=== PATIENT | male | born 1965 | race Caucasian/White ===

== ENCOUNTER 2024-04-09 14:20 | Emergency (ER) | payer BC ==
[2024-04-09] MEDS ORDERED: ONDANSETRON 4 MG/2 ML VIAL ONE (16:46)
[2024-04-09] MEDS ORDERED: MECLIZINE HCL 12.5 MG TAB ONE (16:46)
[2024-04-09] MEDS ORDERED: MORPHINE 4 MG/ML SYR ONE (16:46)
[2024-04-09] MEDS ORDERED: NA CHLORIDE 0.9% 1,000 ML ONE (16:46)
[2024-04-09 17:12] LABS: Absolute Basophils 0.1 K/uL (0-0.5); Absolute Lymphocytes (CBC) 0.8 K/uL (0.7-4.9); Absolute Monocytes 0.6 K/uL (0.1-1.3); Absolute Neutrophil 9.7 K/uL (1.8-8.0); Basophils % 0.5 % (0-1.3); Hematocrit 46.8 % (39.6-49.0); Hemoglobin 15.5 g/dL (13.6-17.9); Lymphocytes % 6.9 % (15.3-44.8); MCH 28.8 pg (27.0-35.0); MCHC 33.2 g/dL (32.0-36.0); MCV 86.8 fL (80-100); MPV 7.7 fL (7.6-11.3); Monocytes % 5.5 % (3.3-12.3); Neutrophils % 87.1 % (41.7-73.7); Platelets 226 thou/uL (152-406); RBC Red Blood Cell Count 5.39 M/uL (4.33-5.43); Red Cell Distribution Width 13.7 % (12.1-15.2)
[2024-04-09 18:15] LABS: Albumin 3.7 g/dL (3.4-5.0); Albumin/Globulin Ratio 1.1 (1.1-1.8); Anion Gap 7.6 mEq/L (5.0-15.0); Bilirubin Total 0.6 mg/dL (0.2-1.0); Globulin 3.3 g/dL (2.3-3.5); Potassium 3.6 mEq/L (3.5-5.1); Troponin High Sensitivity 5.9 pg/mL (<58.9)
--- NOTE | 2024-04-09 19:15 | RAD REPORT ---
EXAM DESCRIPTION: CT - Head Brain Wo Cont - 04/09/2024 7:08 pm CLINICAL HISTORY: Dizziness COMPARISON: none TECHNIQUE: Computed axial tomography of the head was obtained. IV contrast was not requested. All CT scans are performed using dose optimization technique as appropriate and may include automated exposure control or mA/KV adjustment according to patient size. FINDINGS: An intracranial bleed is not seen The ventricles are normal in caliber No significant hypodense areas within the brain visualized No extra-axial fluid collection is noted. Fluid within the sinuses/ mastoids is not seen IMPRESSION: No acute intracranial abnormality is seen If patient's symptoms persist MRI of the brain would be recommended
--- NOTE | 2024-04-09 19:22 | EDPHYS ---
Physician Documentation [facility] Name: Luciano Ann Age: 58 yrs Sex: Male : 1965 Arrival Date: 04/09/2024 Time: 14:20 Bed 19 Private MD: ED Physician Salazar Adler HPI: 04/09 16:28 This 58 yrs old Male presents to ER via Wheelchair with complaints of Dizziness, sp3 Abdominal Pain, Nausea/Vomiting. 16:28 58-year-old male with history of hypertension, hyperlipidemia presents with intense sp3 episodes of vertigo and dizziness coupled with subsequent vomiting and abdominal cramping from the vomiting. Patient states he has "nothing else to bring up" and when he did earlier it was bile and "blood-tinged". He denies any abdominal pain prior to the vertigo episodes. He denies fever, back pain, chest pain, shortness of breath, lower abdominal pain, syncope, near syncope, rash, head injury, known sick contacts, travel history, or any other signs or symptoms on ROS at this time.. Historical: - Allergies: 14:42 No Known Allergies; iw - PMHx: 14:42 Hypertensive disorder; Hypercholesterolemia; iw - PSHx: 14:42 None; iw - Immunization history:: Adult Immunizations not up to date. - Infectious Disease History:: Denies. - Social history:: Smoking status: Patient denies any tobacco usage or history of. ROS: 16:31 Constitutional: Negative for fever, chills, and weight loss, Eyes: Negative for injury, sp3 pain, redness, and discharge, Neck: Negative for injury, pain, and swelling, Cardiovascular: Negative for chest pain, palpitations, and edema, Respiratory: Negative for shortness of breath, cough, wheezing, and pleuritic chest pain, Back: Negative for injury and pain, MS/Extremity: Negative for injury and deformity, Skin: Negative for injury, rash, and discoloration, Psych: Negative for depression, anxiety, suicide ideation, homicidal ideation, and hallucinations, Allergy/Immunology: Negative for hives, rash, and allergies, Endocrine: Negative for neck swelling, polydipsia, polyuria, polyphagia, and marked weight changes, Hematologic/Lymphatic: Negative for swollen nodes, abnormal bleeding, and unusual bruising, 16:31 All other systems are negative, Exam: 16:31 Constitutional: This is a well developed, well nourished patient who is awake, alert, sp3 and in no acute distress. Head/Face: Normocephalic, atraumatic. Eyes: Pupils equal round and reactive to light, extra-ocular motions intact. Lids and lashes normal. Conjunctiva and sclera are non-icteric and not injected. Cornea within normal limits. Periorbital areas with no swelling, redness, or edema. Neck: Trachea midline, no thyromegaly or masses palpated, and no cervical lymphadenopathy. Supple, full range of motion without nuchal rigidity, or vertebral point tenderness. No Meningismus. Chest/axilla: Normal chest wall appearance and motion. Nontender with no deformity. No lesions are appreciated. Cardiovascular: Regular rate and rhythm with a normal S1 and S2. No gallops, murmurs, or rubs. Normal PMI, no JVD. No pulse deficits. Respiratory: Lungs have equal breath sounds bilaterally, clear to auscultation and percussion. No rales, rhonchi or wheezes noted. No increased work of breathing, no retractions or nasal flaring. Back: No spinal tenderness. No costovertebral tenderness. Full range of motion. Skin: Warm, dry with normal turgor. Normal color with no rashes, no lesions, and no evidence of cellulitis. Neuro: Awake and alert, GCS 15, oriented to person, place, time, and situation. Cranial nerves II-XII grossly intact. Motor strength 5/5 in all extremities. Sensory grossly intact. Cerebellar exam normal. Normal gait. Psych: Awake, alert, with orientation to person, place and time. Behavior, mood, and affect are within normal limits. 16:31 Eyes: Mild horizontal nystagmus noted with no vertical component.. 16:31 Abdomen/GI: Mild epigastric pain to palpation without peritoneal signs, rebound or guarding. No active emesis here in the ED., 17:00 ECG was reviewed by the Attending Physician. EKG demonstrates normal sinus rhythm at 77 sp3 bpm with normal intervals, normal QRS, normal axis, nonspecific diffuse ST's ST changes without evidence of acute ischemia. Vital Signs: 14:40 BP 163 / 89; Pulse 78; Resp 18; Temp 97.6; Pulse Ox 96% on R/A; Weight 95.25 kg; Height iw 5 ft. 11 in. ; 18:16 BP 167 / 92; Pulse 77; Resp 13; Pulse Ox 94% ; bp 19:40 BP 152 / 97; Pulse 77; Resp 19 S; Pulse Ox 97% on R/A; ha1 14:40 Body Mass Index 29.29 (95.25 kg, 180.34 cm) iw MDM: 14:35 Patient medically screened. sp3 16:33 Data reviewed: vital signs, nurses notes, lab test result(s), EKG, radiologic studies. sp3 ED course: 58-year-old male who I believe had a vertigo episode probably peripheral in nature with subsequent abdominal pain and vomiting. Clinically low suspicion for central vertigo. However CT scan of the head is pending. CT scan of the abdomen pelvis was also obtained and is pending. Laboratory values are within normal limits. Morphine and ondansetron for symptomatic pain control along with meclizine. Disposition pending workup and patient course with probable discharge home.. 19:21 ED course: Full workup negative including CT scan of the head and laboratory values. sp3 Patient feels better with the meclizine. We will discharge him home on meclizine p.o. and ondansetron ODT with follow-up to PCP.. 04/09 15:13 Order name: CBC with Diff; Complete Time: 18:07 3 04/09 15:13 Order name: CMP; Complete Time: 19:20 3 04/09 15:13 Order name: Lipase; Complete Time: 19:20 3 04/09 15:13 Order name: Troponin High Sensitivity; Complete Time: 19:20 3 04/09 15:13 Order name: CT Abd/Pelvis - IV Contrast Only; Complete Time: 19:26 04/09 16:26 Order name: CT Head Brain wo Cont; Complete Time: 19:20 3 04/09 15:13 Order name: IV Saline Lock; Complete Time: 16:57 3 04/09 15:13 Order name: Labs collected and sent; Complete Time: 16:57 3 04/09 15:13 Order name: EKG - Nurse/Tech; Complete Time: 16:29 3 04/09 15:13 Order name: NPO; Complete Time: 16:13 3 08/26 17:15 Order name: Labs - recollect needed: recollect light green top; Complete Time: 17:59 bd Administered Medications: 16:45 Drug: Meclizine PO 25 mg PO once Route: PO; bp 17:59 Follow up: Response: No adverse reaction bp 16:57 Drug: NS 0.9% IV 1000 ml IV at 1 bolus Per protocol; 1000 mL bolus Route: IV; Rate: 1 bp bolus; Site: right antecubital; 19:00 Follow up: Response: No adverse reaction; IV Status: Completed infusion; IV Intake: ha1 1000ml 16:57 Drug: Ondansetron IVP 4 mg IVP once; over 2 minutes Route: IVP; Site: right antecubital;bp 18:00 Follow up: Response: No adverse reaction bp 16:57 Drug: morphine IVP or IV 4 mg IVP once over 4 mins Route: IVP; Infused Over: 4 mins; bp Site: right antecubital; 17:59 Follow up: Response: No adverse reaction bp Disposition Summary: 04/09/24 19:21 Discharge Ordered Notes: Location: Home sp3 Condition: Stable sp3 Diagnosis - Vertigo, vomiting sp3 Followup: sp3 - With: Private Physician - When: Upon discharge from the Emergency Department - Reason: Recheck today's complaints, Continuance of care Discharge Instructions: - Discharge Summary Sheet sp3 - Vertigo sp3 Forms: - Medication Reconciliation Form sp3 - Antibiotic Education sp3 - Prescription Opioid Use sp3 - Patient Portal Instructions sp3 - Leadership Thank You Letter sp3 Prescriptions: - Meclizine 25 mg Oral Tablet - take 1 tablet ORAL route every 8 hours As needed; 30 tablet; Refills: 0, sp3 Product Selection Permitted - ondansetron 8 mg Oral Tablet,disintegrating - take 1 tablet ORAL route every 12 hours; 20 tablet; Refills: 0, Product sp3 Selection Permitted Signatures: Dispatcher [employer] EDMS Kassi Orta Irene, RN RN iw Peltier, Brian, RN RN bp Patel, Setul, MD MD sp3 Lise Skinner RN ha1 Corrections: (The following items were deleted from the chart) 15:13 15:13 Abdomen Pelvis W Con+CT.RAD.BRZ ordered. EDMS EDMS
--- NOTE | 2024-04-09 19:22 | ER ---
Nurse's Notes [facility] Name: Luciano Ann Age: 58 yrs Sex: Male : 1965 Arrival Date: 04/09/2024 Time: 14:20 Bed 19 Private MD: Diagnosis: Vertigo, vomiting Presentation: 04/09 14:40 Chief complaint: Patient states: last night started getting dizzy, sweaty, fell over, iw vomited for 30 minutes , threw up blood, still vomiting and dry heaving, my equilibrium is off , i having abd pain from the vomiting, cannot hold fluids. Coronavirus screen: At this time, the client does not indicate any symptoms associated with coronavirus-19. 14:40 Method Of Arrival: Wheelchair iw 14:40 Acuity: MARA 3 iw 14:42 Ebola Screen: No symptoms or risks identified at this time. Initial Sepsis Screen: Does iw the patient meet any 2 criteria? No. Patient's initial sepsis screen is negative. Does the patient have a suspected source of infection?. Risk Assessment: Do you want to hurt yourself or someone else? Patient reports no desire to harm self or others. Onset of symptoms was April 08, 2024. Triage Assessment: 16:45 General: Appears in no apparent distress. Behavior is cooperative, appropriate for age, bp anxious. Pain: Complains of pain in abdomen. GI: Abdomen is non-distended, Bowel sounds present X 4 quads. Reports upper abdominal pain. Historical: - Allergies: 14:42 No Known Allergies; iw - PMHx: 14:42 Hypertensive disorder; Hypercholesterolemia; iw - PSHx: 14:42 None; iw - Immunization history:: Adult Immunizations not up to date. - Infectious Disease History:: Denies. - Social history:: Smoking status: Patient denies any tobacco usage or history of. Screenin:45 [facility] ED Fall Risk Assessment (Adult) History of falling in the last 3 months, bp including since admission No falls in past 3 months (0 pts) Confusion or Disorientation No (0 pts) Intoxicated or Sedated No (0 pts) Impaired Gait No (0 pts) Mobility Assist Device Used No (0 pt) Altered Elimination No (0 pt) Score/Fall Risk Level 0 - 2 = Low Risk. Abuse screen: Denies threats or abuse. Denies injuries from another. Nutritional screening: No deficits noted. Tuberculosis screening: No symptoms or risk factors identified. Assessment: 16:45 General: SEE TRIAGE NOTE. bp 18:16 Reassessment: Patient appears in no apparent distress at this time. Patient is alert, bp oriented x 3, equal unlabored respirations, skin warm/dry/pink. 19:39 Reassessment: Patient and/or family updated on plan of care and expected duration. Pain ha1 level reassessed. Patient is alert, oriented x 3, equal unlabored respirations, skin warm/dry/pink. Patient denies pain at this time. Patient states feeling better. Patient states symptoms have improved. Vital Signs: 14:40 BP 163 / 89; Pulse 78; Resp 18; Temp 97.6; Pulse Ox 96% on R/A; Weight 95.25 kg; Height iw 5 ft. 11 in. ; 18:16 BP 167 / 92; Pulse 77; Resp 13; Pulse Ox 94% ; bp 19:40 BP 152 / 97; Pulse 77; Resp 19 S; Pulse Ox 97% on R/A; ha1 14:40 Body Mass Index 29.29 (95.25 kg, 180.34 cm) iw ED Course: 14:22 Patient arrived in ED. im 14:24 Salazar Adler MD is Attending Physician. sp3 14:42 Triage completed. iw 14:44 Arm band placed on. iw 16:09 Myles Rowley, RN is Primary Nurse. bp 16:45 Patient has correct armband on for positive identification. bp 16:57 Inserted saline lock: 20 gauge in right antecubital area, using aseptic technique. bp Blood collected. 19:10 CT Abd/Pelvis - IV Contrast Only In Process Unspecified. EDMS 19:10 CT Head Brain wo Cont In Process Unspecified. EDMS 19:40 No provider procedures requiring assistance completed. IV discontinued, intact, ha1 bleeding controlled, No redness/swelling at site. Pressure dressing applied. 19:41 Provided Education on: medication administration . ha1 Administered Medications: 16:45 Drug: Meclizine PO 25 mg PO once Route: PO; bp 17:59 Follow up: Response: No adverse reaction bp 16:57 Drug: NS 0.9% IV 1000 ml IV at 1 bolus Per protocol; 1000 mL bolus Route: IV; Rate: 1 bp bolus; Site: right antecubital; 19:00 Follow up: Response: No adverse reaction; IV Status: Completed infusion; IV Intake: ha1 1000ml 16:57 Drug: Ondansetron IVP 4 mg IVP once; over 2 minutes Route: IVP; Site: right antecubital;bp 18:00 Follow up: Response: No adverse reaction bp 16:57 Drug: morphine IVP or IV 4 mg IVP once over 4 mins Route: IVP; Infused Over: 4 mins; bp Site: right antecubital; 17:59 Follow up: Response: No adverse reaction bp Medication: 19:41 VIS not applicable for this client. ha1 Intake: 19:00 IV: 1000ml; Total: 1000ml. ha1 Outcome: 19:21 Discharge ordered by . sp3 19:40 Discharged to home ambulatory, ha1 19:40 Condition: stable 19:40 Discharge instructions given to patient, Instructed on discharge instructions, follow up and referral plans. medication usage, Demonstrated understanding of instructions, follow-up care, medications, Prescriptions given X 2, 19:42 Patient left the ED. ha1 Signatures: Dispatcher [employer] EDMS Simi Wood RN RN Myles Rowley RN RN Salazar Fleming MD MD sp3 Ayala, Heidy, RN RN 1 Alondra Mcfarland Corrections: (The following items were deleted from the chart) 14:42 14:40 Chief complaint: Patient states: last night started getting dizzy, sweaty, fell iw over, vomited for 30 minutes , threw up blood, still vomiting and dry heaving, my equilibrium is off iw 14:44 14:40 Chief complaint: Patient states: last night started getting dizzy, sweaty, fell iw over, vomited for 30 minutes , threw up blood, still vomiting and dry heaving, my equilibrium is off , i having abd pain from the vomiting, cannot hold fluids iw 14:44 14:40 BP 163 / 89; Pulse 78bpm; Resp 18bpm; Pulse Ox 96% RA; Temp 97.6F; iw iw 19:41 19:40 BP 152 / 102; Pulse 77bpm; Resp 19bpm; Spontaneous; Pulse Ox 97% RA; ha1 ha1
--- NOTE | 2024-04-09 19:23 | RAD REPORT ---
EXAM DESCRIPTION: CT - Abdomen Pelvis W Contrast - 04/09/2024 7:08 pm CLINICAL HISTORY: Abdominal pain COMPARISON: none. TECHNIQUE: Computed axial tomography of the abdomen pelvis was obtained. 100 cc Isovue-300 was admin istered intravenously. Oral contrast was not requested which limits evaluation of bowel and appendix All CT scans are performed using dose optimization technique as appropriate and may include automated exposure control or mA/KV adjustment according to patient size. FINDINGS: A few areas of subsegmental atelectasis right lung base Mild fatty liver Spleen, pancreas and adrenals unremarkable Small renal cysts. Mild renal cortical thinning. 3 millimeter calculus right kidney. Additional tiny right renal calculus Hydronephrosis Normal appendix. No evidence diverticulitis. Prostate gland is mildly enlarged. Small bilateral inguinal hernias contain fat. Small umbilical hernia IMPRESSION: No acute abnormality is displayed.
[2024-04-09 20:10] VITALS: TEMP 97.6
[2024-04-09 20:14] VITALS: BP 152/97; O2SAT 97
--- NOTE | 2024-04-10 12:41 | EKG ---
Test Date: 2024-04-09 Test Time: 16:24:26 [employer]: [employer] MEASUREMENT RESULTS: Intervals: Rate: 77 MO: 164 QRSD: 94 QT: 416 QTc: 470 [place]: P: 75 MO: 164 QRS: 66 T: 73 INTERPRETIVE STATEMENTS: Normal sinus rhythm Normal ECG No previous ECG available for comparison Electronically Signed On 04-10-24 12:38:25 CDT by Cl Reyes
== END 2024-04-09 19:42 | disposition home or self-care (01) ==
LOC: ER 14:20
DX: R42 Dizziness and giddiness (principal); R11.10 Vomiting, unspecified; I10 Essential (primary) hypertension; E78.00 Pure hypercholesterolemia, unspecified
CPT/HCPCS: 96361; 93005; 85025; 36415; 84484; 83690; 80053; 70450; 74177; 96375; 96374; 99284; Q9967; J8597; J2405; J7030